=== PATIENT | female | born 1935 | race Asian ===

== ENCOUNTER 2020-08-24 15:02 | Emergency (ER) | payer OTHER ==
[~2020-08-24] VITALS: Ht 144.8 cm; Wt 47.6 kg
[2020-08-24 15:05] VITALS: Ht 144.8 cm; Wt 47.6 kg
[2020-08-24 20:32] VITALS: BP 136/83
== END 2020-08-24 20:32 | disposition home or self-care (01) ==
LOC: ED 15:02
DX: R05 Cough (principal); R09.81 Nasal congestion; R50.9 Fever, unspecified; Z20.828 Contact with and (suspected) exposure to other viral communicable diseases